=== PATIENT | female | born 1945 | race Caucasian/White ===

== ENCOUNTER 2019-07-13 05:05 | Emergency (ER) | payer MEDICARE ==
[2019-07-13 05:32] VITALS: BP 175/98
[2019-07-13] MEDS ORDERED: predniSONE TAB* 50 MG PO ONE (05:58)
[2019-07-13] MEDS ORDERED: Fluticasone NASAL SPRAY 50MCG* 16 gm SPRAY BTL BOTH NARES ONE (05:59)
[2019-07-13] MEDS ORDERED: Ondansetron ODT TAB* 4 MG SL ONE (05:59)
--- NOTE | 2019-07-13 06:07 | ED ---
Throat Pain/Nasal Congestion - HPI Summary HPI Summary: This patient is a 74-year-old female with a history of allergies presenting to the ED with allergic rhinitis symptoms. Patient is endorsing clear drainage from the nares, a fullness in the maxillary sinuses, worse with lying down, better with sitting upright. Symptoms have been present 3 days. She has been using her Mag without relief. She states the past she has used Flonase with good relief, however has not started this medication due to the side effects of epistaxis. Patient was unsure if she needed antibiotics at came to the ED for further evaluation. She denies any fevers, sweats, chills. She denies any pain over the maxillary sinuses or frontal sinuses. She does endorse some drainage to the posterior pharynx causing her some nausea. She states she has dealt with this 2-3 times per year, sometimes is prescribed antibiotics and sometimes only steroids for relief. She has not seen her PCP or an journeyman lineman specifically for allergies in the past and recently had a full workup completed at her PCP office. - History of Current Complaint Chief Complaint: EDFluSymptoms Time Seen by Provider: 07/13/19 05:32 Hx Obtained From: Patient Onset/Duration: Sudden Onset Severity: Moderate Associated Signs And Symptoms: Positive: Negative Related History: Seasonal Allergies - Allergies/Home Medications Allergies/Adverse Reactions: Allergies Allergy/AdvReac Type Severity Reaction Status Date / Time amoxicillin [From Augmentin] Allergy Unknown Verified 02/21/18 11:06 Reaction Details azithromycin Allergy Diarrhea Verified 02/21/18 11:06 cephalexin [From Keflex] Allergy Unknown Verified 02/21/18 11:06 Reaction Details clavulanic acid Allergy Unknown Verified 02/21/18 11:06 [From Augmentin] Reaction Details doxycycline Allergy Unknown Verified 02/21/18 11:06 Reaction Details niacinamide Allergy Rash Verified 02/21/18 11:06 sulfamethoxazole Allergy Nausea And Verified 02/21/18 11:06 [From Bactrim] Vomiting trimethoprim [From Bactrim] Allergy Nausea And Verified 02/21/18 11:06 Vomiting Home Medications: Home Medications [place]-3/Dha/Epa/Fish Oil [Fish Oil 500 mg Softgel] 1 cap PO DAILY 07/13/19 [ History Confirmed 07/13/19] PMH/Surg Hx/FS Hx/Imm Hx Previously Healthy: Yes Endocrine/Hematology History: Reports: Hx Thyroid Disease Denies: Hx Diabetes Cardiovascular History: Reports: Hx Hypertension Respiratory History: Denies: Hx Asthma, Hx Chronic Obstructive Pulmonary Disease (COPD) GI History: Denies: Hx Ulcer - Cancer History Hx Chemotherapy: No Hx Radiation Therapy: No - Surgical History Surgery Procedure, Year, and Place: CATARACS - Immunization History Hx Pertussis Vaccination: No Immunizations Up to Date: Yes Infectious Disease History: No Infectious Disease History: Denies: Hx Clostridium Difficile, Hx Hepatitis, Hx Human Immunodeficiency Virus (HIV), Hx of Known/Suspected MRSA, Hx Shingles, Hx Tuberculosis, Hx Known/ Suspected VRE, Hx Known/Suspected VRSA, History Other Infectious Disease, Traveled Outside the [place] in Last 30 Days - Social History Occupation: Unemployed Lives: With Family Alcohol Use: None Hx Substance Use: No Substance Use Type: Reports: None Smoking Status (MU): Never Smoked Tobacco Review of Systems Constitutional: Negative Negative: Fever, Chills, Fatigue, Skin Diaphoresis Positive: Nasal Discharge - and fullness in the maxillary sinus with drainage Negative: Palpitations, Chest Pain Negative: Shortness Of Breath, Cough Positive: Nausea Negative: Arthralgia, Myalgia Negative: Rash, Bruising All Other Systems Reviewed And Are Negative: Yes Physical Exam Triage Information Reviewed: Yes Vital Signs On Initial Exam: Initial Vitals Temp Pulse Resp BP Pulse Ox 99.1 F 118 18 157/102 97 07/13/19 05:06 07/13/19 05:06 07/13/19 05:06 07/13/19 05:06 07/13/19 05:06 Vital Signs Reviewed: Yes Appearance: Positive: Well-Appearing, Well-Nourished Skin: Positive: Warm, Skin Color Reflects Adequate Perfusion Head/Face: Positive: Normal Head/Face Inspection Eyes: Positive: EOMI, SIMONE, Conjunctiva Clear Neck: Positive: Supple, No Lymphadenopathy Respiratory/Lung Sounds: Positive: Clear to Auscultation, Breath Sounds Present Cardiovascular: Positive: RRR, Pulses are Symmetrical in both Upper and Lower Extremities Musculoskeletal: Positive: Normal, Strength/ROM Intact Neurological: Positive: Speech Normal Psychiatric: Positive: Affect/Mood Appropriate Diagnostics - Vital Signs Vital Signs Temp Pulse Resp BP Pulse Ox 07/13/19 05:31 99.8 F 107 18 96 07/13/19 05:29 175/98 07/13/19 05:06 99.1 F 118 18 157/102 97 - Laboratory Lab Statement: Any lab studies that have been ordered have been reviewed, and results considered in the medical decision making process. EENT Course/Dx - Course Course Of Treatment: Patient's evaluated for allergic rhinitis symptoms. She states symptoms are worse at night and lying flat, better with sitting upright. She continues to have nasal drainage which is clear and sometimes green. She denies any fevers, sweats, chills. She has been denying any maxillary sinus pressure or tenderness. On physical examination, there is no pressure tenderness over the frontal or maxillary sinuses. Posterior pharynx without erythema or drainage. No cervical lymphadenopathy. Lungs CTA, RRR. Patient appears well and nontoxic. Vital signs are stable and patient remains afebrile. She will be prescribed Xyzal, Flonase, Zofran and a very short course of steroids. She will use Vaseline inside each Odom prior to using the Flonase to prevent epistaxis and drying out. She will also use humidifier in the home. - Diagnoses Provider Diagnoses: Allergic rhinitis Discharge ED - Sign-Out/Discharge Documenting (check all that apply): Patient Departure Patient Received Moderate/Deep Sedation with Procedure: No - Discharge Plan Condition: Critical Disposition: HOME Prescriptions: Fluticasone NASAL SPRAY 50MCG* [Flonase NASAL SPRAY 50MCG*] 2 spray BOTH NARES DAILY #1 btl Levocetirizine Dihydrochloride [Xyzal] 5 mg PO BEDTIME #30 tablet Ondansetron ODT TAB* [Zofran 4 MG Odt TAB*] 4 mg PO Q6H PRN #12 tab.odt MDD 4 PRN Reason: Nausea predniSONE TAB* [Deltasone TAB*] 50 mg PO DAILY #4 tab Patient Education Materials: Allergies (ED) Referrals: Elie Rubio MD [Primary Care Provider] - Additional Instructions: If you continue to suffer from severe allergies - you may need to see an journeyman lineman and obtain more medications such as monthly or weekly injections Please follow up with your PCP - Billing Disposition and Condition Condition: CRITICAL Disposition: Home
== END 2019-07-13 06:11 | disposition home or self-care (01) ==
LOC: ED 05:05
DX: J30.9 Allergic rhinitis, unspecified (principal); E07.9 Disorder of thyroid, unspecified; I10 Essential (primary) hypertension; Z88.1 Allergy status to other antibiotic agents; Z88.2 Allergy status to sulfonamides; Z88.8 Allergy status to other drugs, medicaments and biological substances; Z79.82 Long term (current) use of aspirin; Z79.899 Other long term (current) drug therapy
CPT/HCPCS: 99282; A9270-GY; J7512